=== PATIENT | female | born 1970 | race Caucasian/White ===

== ENCOUNTER → 2018-03-11 | Outpatient (CLI) | payer MEDICARE, MEDICAID ==
--- NOTE | 2018-03-12 08:42 | RADIOLOGY REPORT (SQ) ---
EXAM DESCRIPTION: MRI LT UPPER JOINT WITHOUT COMPLETED DATE/TIME: 03/11/2018 12:51 pm REASON FOR STUDY: PAIN IN LEFT SHOULDER M25.512 PAIN IN LEFT SHOULDER COMPARISON: None. TECHNIQUE: Left shoulder images acquired and stored on PACS. Multiplanar imaging to include fat sens itive sequences such as T1, water sensitive sequences such as FST2/STIR, cartilage sensitive sequence s such as FSPD/gradient-echo sequences. LIMITATIONS: Moderately limited by motion artifact. Despite attempted repeat scans. Best images po ssible based on patient discomfort and toleration. FINDINGS: BONE MARROW AND CORTEX: Mild marrow edema in the coracoid. No fracture. JOINT OR BURSAL EFFUSION: Trace joint fluid. GLENO-HUMERAL ARTICULATION: No subluxation or dislocation. No large chondral lesions, limited by mot ion. ACROMION AND AC JOINT: Mild-moderate degenerative overgrowth, predominantly dorsal. Mild lateral d own slope of the acromion but no alex subacromial compromise. ROTATOR CUFF AND INTERVAL: Allowing for motion, generally intact without evidence of significant tear . No overt cuff muscle atrophy. Note is made of pronounced scar/ edema in the rotator interval. Th is is likely reflective of adhesive capsulitis. LABRUM AND BICEPS LABRAL COMPLEX: Limiting motion. No alex superior labral disruption or biceps d isplacement. REMAINDER OF LABRUM AND IGHL : Suboptimally assessed. PERIARTICULAR AND ADJACENT SOFT TISSUES: No masses or abnormal nodes. OTHER: No other significant finding. IMPRESSION: 1. Findings suggestive of marked adhesive capsulitis. 2. Otherwise intact, allowing f or significant motion artifact. TECHNICAL DOCUMENTATION: JOB ID: [id number] [employer]- All Rights Reserved Reading location - IP/workstation name: [email or web address]
== END ==
LOC: RAD 11:50
PROVIDERS: ATTEND Orthopaedic Surgery
DX: M25.512 Pain in left shoulder (principal)

== ENCOUNTER 2019-11-15 14:21 | Emergency (ER) | payer MEDICARE, MEDICAID ==
[2019-11-15] MEDS ORDERED: DEXAMETHASONE SOD PHOS INJ 10 MG/1 ML VIAL IM ONE (14:42)
[2019-11-15] MEDS ORDERED: KETOROLAC TROMETHAMINE 60 MG/2 ML SDV IM ONE (14:43)
[2019-11-15] MEDS ORDERED: DIAZEPAM 5 MG TABLET PO ONE (14:43)
--- NOTE | 2019-11-15 15:36 | RADIOLOGY REPORT (SQ) ---
EXAM DESCRIPTION: L SPINE WHOLE IMAGES COMPLETED DATE/TIME: 11/15/2019 2:14 pm REASON FOR STUDY: pain COMPARISON: None. NUMBER OF VIEWS: Five views including obliques. TECHNIQUE: AP, lateral, oblique, and sacral radiographic images acquired of the lumbar spine. LIMITATIONS: None. FINDINGS: MINERALIZATION: Normal. SEGMENTATION: Normal. No transitional anatomy. ALIGNMENT: Normal. VERTEBRAE: Maintained height. No fracture or worrisome bone lesion. DISCS: There is minimal degenerative disc disease. POSTERIOR ELEMENTS: Pedicles and facets are intact. No pars defect or posterior arch defects. HARDWARE: None in the spine. PARASPINAL SOFT TISSUES: Normal. PELVIS: Intact as visualized. No fractures or worrisome bone lesions. SI joints intact. OTHER: No other significant finding. IMPRESSION: No acute fracture or dislocation of the lumbar spine. Minimal degenerative disc disease . TECHNICAL DOCUMENTATION: JOB ID: [id number] [employer]- All Rights Reserved Reading location - IP/workstation name: [email or web address]
--- NOTE | 2019-11-15 17:09 | ER Document Report ---
ED General Pain - General Chief Complaint: Back Pain Stated Complaint: BACK PAIN Time Seen by Provider: 11/15/19 14:33 Primary Care Provider: JEREMIE DEL CASTILLO MD [Primary Care Provider] - Follow up as needed Mode of Arrival: Wheelchair Information source: Patient Notes: Patient is a 48-year-old female comes emergency room today complaining of severe back pain. Patient states that the pain is radiating down her left leg. She was sitting in a chair bent down and she felt a snap in her low back. Since that she has had a hard time ambulating. She called urgent care and they told her there is nothing to do for her here so they decided to send her emergency room. 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 She states that 3 to 4 years ago she had a similar incident happened she had some shots in ER and then went to pain management where she received some shots in the back and it got better. She denies any other traumatic events and no falls. Denies any other medical problems. Patient denies any loss of urine or stool. TRAVEL OUTSIDE OF THE [place] IN LAST 30 DAYS: No - HPI Onset: Yesterday Onset/Duration: Sudden, Persistent, Worse Quality of pain: Cramping, Sharp, Stabbing Severity: Severe Pain Level: 4 Context: Other - Acute exacerbation of chronic problem Typical of prior episodes of painful crisis: Yes Exacerbated by: Movement Relieved by: Denies Similar symptoms previously: Yes Recently seen / treated by doctor: No - Related Data Allergies/Adverse Reactions: betaine Allergy (Verified 11/15/19 16:28) latex Allergy (Verified 11/15/19 16:28) iv dye Allergy (Uncoded 11/15/19 16:28) Home Medications: nexium Past Medical History - Social History Smoking Status: Current Every Day Smoker Chew tobacco use (# tins/day): No Smoking Education Provided: Yes Frequency of alcohol use: None Drug Abuse: None Lives with: Family Family History: Reviewed & Not Pertinent Review of Systems - Review of Systems Constitutional: No symptoms reported EENT: No symptoms reported Cardiovascular: No symptoms reported Respiratory: No symptoms reported Gastrointestinal: No symptoms reported Genitourinary: No symptoms reported Female Genitourinary: No symptoms reported Musculoskeletal: See HPI, Back pain Skin: No symptoms reported Hematologic/Lymphatic: No symptoms reported Neurological/Psychological: See HPI, Numbness, Tingling Physical Exam - Vital signs Vitals: Temp Pulse Resp BP Pulse Ox 98.6 F 93 18 111/81 98 11/15/19 14:36 11/15/19 14:36 11/15/19 14:36 11/15/19 14:36 11/15/19 14:36 Interpretation: Hypotensive - Notes Notes: PHYSICAL EXAMINATION: GENERAL: Patient is a 48-year-old female who is well-nourished well-developed in no apparent distress although appears very uncomfortable in obvious pain. HEAD: Atraumatic, normocephalic. EYES: Pupils equal round and reactive to light, extraocular movements intact, conjunctiva are normal. ENT: Nares patent, oropharynx clear without exudates. Moist mucous membranes. NECK: Normal range of motion, supple without lymphadenopathy LUNGS: Breath sounds clear to auscultation bilaterally and equal. No wheezes rales or rhonchi. HEART: Regular rate and rhythm without murmurs ABDOMEN: Soft, nontender, nondistended abdomen. No guarding, no rebound. No masses appreciated. Female : deferred Musculoskeletal: Examination patient's area of concern is her lumbar spine. In a sitting position patient has some mild reproducible tenderness in the left side of the lumbar spine. There are some palpable spasms that are felt in the local area and into the buttocks. Patient has negative straight leg raises bilaterally. She has good DTRs in the lower extremities after getting her shots and sitting laying down in the gurney for a while. Patient also has good vascular examination in the lower extremities as well. Also general patient has good sensation all from her in her ankles to her groin as she does from the outer ankles to her hips. There is no sign of saddle paresthesia. Also patient when ambulatory has no foot drop. There does not appear to be any sign of cauda equina syndrome. NEUROLOGICAL: Normal speech, . Normal sensory, motor exams PSYCH: Normal mood, normal affect. SKIN: Warm, Dry, normal turgor, no rashes or lesions noted. Course - Re-evaluation Re-evalutation: 11/15/19 17:09 Patient is extended stay was secondary to room availability. I was unable to do a great exam neurologically on patient while she was in a wheelchair. She did go get an x-ray and was brought back did not receive her medications until approximately 35 to 40 minutes ago. She was then placed in room 31 and I went to talk to her. I explained to her wanted to wait to see if we could break the spasms in her back and she agreed. Within 10 minutes she was calling the nurse and the nurse coming to see me about wanting discharge because she has a disabled son and has to get home. So at this point will send patient home on a little pain medication steroids muscle relaxers and Lidoderm patches along with some Lyrica. Patient had been on Lyrica in the past she not sure why she stopped it but did say that worked for her. When asked about gabapentin she said she has a reaction to that with hives. But Lyrica has some she is taken in the past. - Vital Signs Vital signs: Temp Pulse Resp BP Pulse Ox 98.6 F 93 18 111/81 98 11/15/19 14:36 11/15/19 14:36 11/15/19 14:36 11/15/19 14:36 11/15/19 14:36 Discharge - Discharge Clinical Impression: Sciatica Qualifiers: Laterality: left Qualified Code(s): M54.32 - Sciatica, left side Condition: Stable Disposition: HOME, SELF-CARE Instructions: Ice Packs ([facility]), Low Back Pain ([facility]), Oral Narcotic Medication ([facility]), Sciatica ([facility]), Warm Packs ([facility]) Additional Instructions: Home and rest. Light stretching starting tomorrow. Ice to the area 3 times a day for approximately 45 minutes. As we discussed you need to follow-up with your pain management people and your orthopedist if you do not have one currently I will give you the name of orthopedic doctor on-call today. You can contact his office Sunday to see if he can accommodate you. In the meantime return to ER should you have any uncontrolled loss of urine or stool uncontrolled vomiting or any other concerns. Prescriptions: Lidocaine [Lidoderm 5% (700 mg) Transdermal Patch] 1 patch TP DAILY #30 adh..patch Pregabalin [Lyrica 75 mg Capsule] 75 mg PO Q12 #60 capsule Pregabalin [Lyrica 75 mg Capsule] 75 mg PO Q12 #60 capsule Hydrocodone/Acetaminophen [Holden 5-325 mg Tablet] 1 tab PO Q4 PRN #15 tablet PRN Reason: Prednisone 10 mg PO ASDIR 6 Days #1 tab.ds.pk Methocarbamol [Robaxin 500 mg Tablet] 500 mg PO TID PRN #21 tablet PRN Reason: Forms: Smoking Cessation Education, Elevated Blood Pressure Referrals: JEREMIE DEL CASTILLO MD [Primary Care Provider] - Follow up as needed CONNIE STEELE JR, DO [ACTIVE PROVISIONAL STAFF] - Follow up as needed
[2019-11-15 18:04] VITALS: BP 120/68
== END 2019-11-15 17:45 | disposition home or self-care (01) ==
LOC: ER 14:21
DX: M54.32 Sciatica, left side (principal); F17.200 Nicotine dependence, unspecified, uncomplicated
CPT/HCPCS: 99283; 96372; 72110; A9270; J1885; J1100